=== PATIENT | male | born 1955 | race American Indian/Alaskan Native ===

== ENCOUNTER 2021-06-23 17:13 | Emergency (ER) | payer SELFPAY ==
[2021-06-23] MEDS ORDERED: MORPHINE 4 MG/1 ML INJ IV ONE (21:13)
[2021-06-23] MEDS ORDERED: ONDANSETRON 4 MG/2 ML INJ IV ONE (21:13)
[2021-06-23] MEDS ORDERED: SODIUM CHLORIDE 0.9% 1000 ML 1,000 ML IV ONE (21:13)
[2021-06-23 21:45] LABS: Basophils % (Auto) 0.2 % (0.0-1.8); Lymphocytes # (Auto) 0.8 K/mm3 (1.2-5.4); Lymphocytes % (Auto) 11.9 % (13.4-35.0); Mean Corpuscular HGB Conc 32 % (32-34); Mean Corpuscular Volume 79 fl (84-94); Monocytes # (Auto) 0.2 K/mm3 (0.0-0.8); Monocytes % (Auto) 3.7 % (0.0-7.3); Platelet Count 238 K/mm3 (140-440); Red Blood Count 5.18 M/mm3 (3.65-5.03); Red Cell Distribution Width 15.7 % (13.2-15.2)
[2021-06-23 22:07] LABS: Alanine Aminotransferase 14 units/L (7-56); Albumin 4.2 g/dL (3.9-5); BUN/Creatinine Ratio 14; Blood Urea Nitrogen 14 mg/dL (9-20); Hemolysis Index 5
[2021-06-23 22:08] LABS: Bilirubin,Urine NEG (Negative); Blood,Urine LG (Negative); Color,Urine Amber (Yellow); Mucus,Urine 3+ /HPF; RBC,Urine > 182.0 /HPF (0.0-6.0); Urobilinogen,Urine < 2.0 mg/dL (<2.0)
--- NOTE | 2021-06-23 22:18 | Emergency Department Report ---
ED Abdominal Pain HPI - General Chief Complaint: Back Pain/Injury Stated Complaint: LOWER BACK PAIN Source: patient Mode of arrival: Ambulatory Limitations: No Limitations - History of Present Illness Initial Comments: Patient is a 66-year-old -[place] male with no past medical history presented to the ED with complaint of acute onset persistent right flank pain that radiates to the right lower quadrant with intermittent nausea and vomiting for the last 12 hours. Patient states that he has not been able to sleep because of worsening right flank pain that radiates to the right lower quadrant area. Patient denies fever, chills, diarrhea, dizziness, syncope, hematuria, dysuria, testicular pain, penile discharge, chest pain or shortness of breath, heavy lifting, numbness and tingling or weakness of lower extremities bilaterally, headache or low back pain. MD Complaint: abdominal pain, flank pain (Right flank pain radiating to right lower quadrant), other (Nausea and vomiting) -: Sudden, hour(s) (12) Location: RLQ, R flank Radiation: RLQ, R flank Migration to: periumbilical Severity: severe Severity scale (0 -10): 9 Quality: stabbing, sharp Consistency: constant Improves With: nothing, bowel movement Associated Symptoms: nausea, vomiting - Related Data Previous Rx's Medication Instructions Recorded Last Taken Type Ketorolac [Toradol] 10 mg PO Q8H PRN #20 tablet 06/23/21 Unknown Rx Ondansetron [Zofran Odt] 4 mg PO Q6HR PRN #20 tab.rapdis 06/23/21 Unknown Rx Sulfamethoxazole/Trimethoprim 1 each PO Q12H #20 tablet 06/23/21 Unknown Rx [Bactrim DS TAB] Tamsulosin [Flomax] 0.4 mg PO QDAY #10 cap 06/23/21 Unknown Rx oxyCODONE /ACETAMINOPHEN [Percocet 1 tab PO Q6HR PRN #12 tablet 06/23/21 Unknown Rx 5/325] Allergies Allergy/AdvReac Type Severity Reaction Status Date / Time No Known Allergies Allergy Verified 06/23/21 18:43 ED Review of Systems ROS: Stated complaint: LOWER BACK PAIN Other details as noted in HPI Constitutional: denies: chills, fever Eyes: denies: eye pain, eye discharge, vision change ENT: denies: ear pain, throat pain Respiratory: denies: cough, shortness of breath, wheezing Cardiovascular: denies: chest pain, palpitations Endocrine: no symptoms reported Gastrointestinal: abdominal pain (right flank and RLQ pain), nausea, vomiting. denies: diarrhea Genitourinary: denies: urgency, dysuria Musculoskeletal: denies: back pain, joint swelling, arthralgia Skin: denies: rash, lesions Neurological: denies: headache, weakness, paresthesias Psychiatric: denies: anxiety, depression Hematological/Lymphatic: denies: easy bleeding, easy bruising ED Past Medical Hx - Past Medical History Previous Medical History?: No - Medications Home Medications: Home Medications Medication Instructions Recorded Confirmed Last Taken Type Ketorolac [Toradol] 10 mg PO Q8H PRN #20 tablet 06/23/21 Unknown Rx Ondansetron [Zofran Odt] 4 mg PO Q6HR PRN #20 tab.rapdis 06/23/21 Unknown Rx Sulfamethoxazole/Trimethoprim 1 each PO Q12H #20 tablet 06/23/21 Unknown Rx [Bactrim DS TAB] Tamsulosin [Flomax] 0.4 mg PO QDAY #10 cap 06/23/21 Unknown Rx oxyCODONE /ACETAMINOPHEN [Percocet 1 tab PO Q6HR PRN #12 tablet 06/23/21 Unknown Rx 5/325] ED Physical Exam - General Limitations: No Limitations General appearance: alert, in no apparent distress - Head Head exam: Present: atraumatic, normocephalic, normal inspection - Eye Eye exam: Present: normal appearance, PERRL, EOMI Pupils: Present: normal accommodation - ENT ENT exam: Present: normal exam, normal orophraynx, mucous membranes moist, TM's normal bilaterally, normal external ear exam - Neck Neck exam: Present: normal inspection, full ROM. Absent: tenderness - Respiratory Respiratory exam: Present: normal lung sounds bilaterally. Absent: respiratory distress, wheezes, rales, rhonchi, chest wall tenderness, accessory muscle use, decreased breath sounds - Cardiovascular Cardiovascular Exam: Present: regular rate, normal rhythm, normal heart sounds. Absent: systolic murmur, diastolic murmur, rubs, gallop - GI/Abdominal GI/Abdominal exam: Present: soft, tenderness (Palpable right flank and right lower quadrant tenderness, no guarding or rebound), guarding, normal bowel sounds. Absent: rebound, hyperactive bowel sounds - Extremities Exam Extremities exam: Present: normal inspection, full ROM, normal capillary refill - Back Exam Back exam: Present: normal inspection, full ROM. Absent: CVA tenderness (R), CVA tenderness (L), muscle spasm - Neurological Exam Neurological exam: Present: alert, oriented X3, CN II-XII intact, normal gait, reflexes normal - Psychiatric Psychiatric exam: Present: normal affect, normal mood - Skin Skin exam: Present: warm, dry, intact, normal color. Absent: rash ED Course Vital Signs 06/23/21 18:43 Temperature 98.1 F Pulse Rate 83 Respiratory 16 Rate Blood Pressure 118/59 [Right] O2 Sat by Pulse 100 Oximetry ED Medical Decision Making - Lab Data Result diagrams: 06/23/21 21:20 06/23/21 21:20 - Radiology Data Radiology results: report reviewed, [place] [address] Cat Scan Report Signed Patient: PADMA THORPE MR#: [id number] : 1955 Acct:[id number] Age/Sex: 66 / M ADM Date: 06/23/21 Loc: ED Attending Dr: Ordering Physician: JOANNE PRICE Date of Service: 06/23/21 Procedure(s): CT abdomen pelvis w con Accession Number(s): [id number] cc: JOANNE PRICE CT ABDOMEN AND PELVIS WITH CONTRAST INDICATION / CLINICAL INFORMATION: Lower back and RIGHT sided flank pain. TECHNIQUE: Axial CT images were obtained through the abdomen and pelvis after 100 cc of Omnipaque [address] scans at this location are performed using CT dose reduction for ALARA by means of automated exposure control. COMPARISON: None available. FINDINGS: LOWER CHEST: No significant abnormality. AORTA / ARTERIES: No significant abnormality. IVC / VEINS: No significant abnormality. LYMPH NODES: Lack of intraperitoneal fat limits evaluation for adenopathy. COLON: No significant abnormality. APPENDIX: No significant abnormality. STOMACH / SMALL BOWEL: No significant abnormality. PERITONEUM: No free fluid. No free air. No fluid collection. LIVER: Scattered right hepatic lobe cyst. GALLBLADDER: No significant abnormality. BILE DUCTS: No significant abnormality. PANCREAS: No significant abnormality. SPLEEN: No significant abnormality. ADRENALS: No significant abnormality. RIGHT KIDNEY / URETER: Along the course of the right ureter there is a 6 mm calcification, likely representing a ureteral stone. There is moderate hydronephrosis. LEFT KIDNEY / URETER: No significant abnormality. URINARY BLADDER: No significant abnormality. REPRODUCTIVE ORGANS: No significant abnormality. SKELETAL SYSTEM: No significant abnormality. ADDITIONAL FINDINGS: None. IMPRESSION: 1. Likely 6 mm ureteral stone in the distal right ureter causing mild right hydronephrosis. Signer Name: Dwain Steele DO Signed: 06/23/2021 10:48 PM Workstation Name: [id number] Transcribed By: MARIO Dictated By: DWAIN STEELE DO Electronically Authenticated By: DWAIN STEELE DO Signed Date/Time: 06/23/212247 DD/ 43 TD/TT: Print - Medical Decision Making This is a 66-year-old -[place] male with no past medical history presented to the ED with complaint of acute onset persistent right flank pain that radiates to the right lower quadrant with intermittent nausea and vomiting for the last 12 hours. Patient states that he has not been able to sleep because of worsening right flank pain that radiates to the right lower quadrant area. In the ED, patient is alert and oriented x3 and is not in any distress. Patient however appears to be in significant pain. Patient was treated for pain in the ED and also given antiemetics, normal saline 1 L IV bolus x1. Lab test results were reviewed and are all nonactionable except for urinalysis that showed significant urinary tract infection with gross hematuria. Abdomen pelvis CT scan with contrast showed a likely 6 mm ureteral stone in the distal right ureter causing mild right hydronephrosis. Patient was therefore treated also in the ED with Flomax 0.4 mg p.o. x1, Toradol 30 mg IV x1 and Rocephin 1 g IV x1. On reevaluation, patient's pain is well controlled medication. Patient will discharge home on pain medications, antibiotics, antiemetics and Flomax prescriptions and was advised to follow-up with his primary care physician in 5 to 7 days for reevaluation or return to the ED immediately if symptoms get worse. Patient also given a referral to the urologist Dr. Clark for follow- up in 5 to 7 days. Patient was otherwise advised to contact Dr. Clark's office first thing in the morning on Sunday, June 27, 2021 to schedule a follow-up appointment promptly. - Differential Diagnosis Kidney stone; UTI; appendicitis; colitis; diverticulitis; muscle strain Critical care attestation.: If time is entered above; I have spent that time in minutes in the direct care of this critically ill patient, excluding procedure time. ED Disposition Clinical Impression: Acute abdominal pain in right flank, Nausea and vomiting in adult patient, Acute urinary tract infection, Kidney stone on right side, Ureteral colic Disposition: HOME / SELF CARE / HOMELESS Is pt being admited?: No Does the pt Need Aspirin: No Condition: Stable Instructions: Kidney Stones, [id number], Renal Colic, [id number], Flank Pain, Adult, [id number], Nausea and Vomiting, Adult, [id number], Urinary Tract Infection, Adult, [id number] Additional Instructions: All lab test results were reviewed and are all nonactionable except for urinary tract infection in urinalysis abdomen pelvis CT scan with contrast showed a likely 6 mm stone in the distal ureter with mild hydronephrosis. Therefore take medications with food, drink plenty of fluids and follow-up with the urologist in 5 to 7 days for reevaluation. Contact Dr. Clark's office first thing in the morning on Sunday, June 27, 2021 to schedule a follow-up appointment. Return to the ED immediately if your symptoms get worse Prescriptions: Sulfamethoxazole/Trimethoprim [Bactrim DS TAB] 1 each PO Q12H #20 tablet Tamsulosin [Flomax] 0.4 mg PO QDAY #10 cap oxyCODONE /ACETAMINOPHEN [Percocet 5/325] 1 tab PO Q6HR PRN #12 tablet PRN Reason: Pain Ketorolac [Toradol] 10 mg PO Q8H PRN #20 tablet PRN Reason: Pain Ondansetron [Zofran Odt] 4 mg PO Q6HR PRN #20 tab.rapdis PRN Reason: Nausea And Vomiting Referrals: LUCY CLARK MD [Staff Physician] - 3-5 Days [facility] [Provider Group] - 7-10 days Time of Disposition: 23:39 Print Language: GUYANESE
[2021-06-23] MEDS ORDERED: cefTRIAXone/NS 1 GM/50 ML 1 GM/50 ML BAG IV ONE (22:39)
--- NOTE | 2021-06-23 22:52 | Cat Scan Report ---
CT ABDOMEN AND PELVIS WITH CONTRAST INDICATION / CLINICAL INFORMATION: Lower back and RIGHT sided flank pain. TECHNIQUE: Axial CT images were obtained through the abdomen and pelvis after 100 cc of Omnipaque [address] scans at this location are performed using CT dose reduction for ALARA by means of automated exposure control. COMPARISON: None available. FINDINGS: LOWER CHEST: No significant abnormality. AORTA / ARTERIES: No significant abnormality. IVC / VEINS: No significant abnormality. LYMPH NODES: Lack of intraperitoneal fat limits evaluation for adenopathy. COLON: No significant abnormality. APPENDIX: No significant abnormality. STOMACH / SMALL BOWEL: No significant abnormality. PERITONEUM: No free fluid. No free air. No fluid collection. LIVER: Scattered right hepatic lobe cyst. GALLBLADDER: No significant abnormality. BILE DUCTS: No significant abnormality. PANCREAS: No significant abnormality. SPLEEN: No significant abnormality. ADRENALS: No significant abnormality. RIGHT KIDNEY / URETER: Along the course of the right ureter there is a 6 mm calcification, likely rep resenting a ureteral stone. There is moderate hydronephrosis. LEFT KIDNEY / URETER: No significant abnormality. URINARY BLADDER: No significant abnormality. REPRODUCTIVE ORGANS: No significant abnormality. SKELETAL SYSTEM: No significant abnormality. ADDITIONAL FINDINGS: None. IMPRESSION: 1. Likely 6 mm ureteral stone in the distal right ureter causing mild right hydronephrosis. Signer Name: Dwain Ryan DO Signed: 06/23/2021 10:48 PM Workstation Name: [id number]
[2021-06-23] MEDS ORDERED: PROCHLORPERAZINE EDISYLATE 10 MG/2 ML VIAL IV ONE (23:13)
[2021-06-23] MEDS ORDERED: KETOROLAC 30 MG/1 ML INJ IV ONE (23:13)
[2021-06-23] MEDS ORDERED: TAMSULOSIN 0.4 MG CAP PO ONE (23:15)
[2021-06-24 00:22] VITALS: BP 98/62
== END 2021-06-24 00:21 | disposition home or self-care (01) ==
LOC: ED 17:13
DX: N39.0 Urinary tract infection, site not specified (principal); N20.2 Calculus of kidney with calculus of ureter; R11.2 Nausea with vomiting, unspecified; Z79.899 Other long term (current) drug therapy
CPT/HCPCS: 36415; 74177; 80053; 81001; 85025; 87086; 96361; 96365; 96375; 99284; J0696; J0780; J1885; J2270; J2405; J7030; Q9967; Q0162